=== PATIENT | male | born 1960 | race Caucasian/White ===

== ENCOUNTER → 2017-03-18 | Outpatient (CLI) | payer BC ==
[~2017-03-18] VITALS: Ht 172.7 cm; Wt 99.8 kg
[~2017-03-18] MED LIST: ACTOPLUS MET 501 TAB PO; ACTOS 15MG TAB15 MG PO; ASPIRIN E.C. 8181 MG PO; ASPIRIN E.C.325 MG PO; BYSTOLIC5 MG PO; GLUCOPHAGE; INVOKAMET4 PO; LOPRESSOR 225 MG/TAB PO; LYRICA; TOPROL; TOPROL XL50 MG PO; TRULICITY0.75 MG/0. SQ; ZOCOR 80MG80 MG PO
[2017-03-18 10:49] VITALS: BP 123/82; PULSE 69
== END ==
LOC: COL.CARD 10:26
DX: I49.3 Ventricular premature depolarization (principal); Z86.79 Personal history of other diseases of the circulatory system
CPT/HCPCS: A9502

== ENCOUNTER → 2019-07-27 | Outpatient (CLI) | payer BC ==
[~2019-07-27] VITALS: Ht 172.7 cm; Wt 98.1 kg
[~2019-07-27] MED LIST changes: +BYSTOLIC2.5 MG
[2019-07-27 10:54] VITALS: BP 132/78; PULSE 59
[2019-07-27 12:16] VITALS: BP 135/73; PULSE 83
[2019-07-27 12:17] VITALS: BP 131/78; PULSE 84
[2019-07-27 12:18] VITALS: BP 136/78; PULSE 85
[2019-07-27 12:19] VITALS: BP 137/74; PULSE 84
== END ==
LOC: COL.CARD 10:37
DX: I25.10 Atherosclerotic heart disease of native coronary artery without angina pectoris (principal); R55 Syncope and collapse; E11.9 Type 2 diabetes mellitus without complications
CPT/HCPCS: A9500; J2785

== ENCOUNTER → 2019-08-08 | Outpatient (CLI) | payer BC | LOC: COL.CARD 07:52 | DX: R55 Syncope and collapse (principal) ==